=== PATIENT | female | born 1990 | race Caucasian/White ===

== ENCOUNTER 2024-03-31 04:49 | Day surgery (SDC) | payer OTHER, SELFPAY ==
--- NOTE | 2024-03-20 17:32 | PC.NURSE ---
Report to the Outpatient Waiting Room, entrance under the green pavilion located off [facility], at time 0700 on date 03/31/24. Planned Procedure Time: 0900.? Time changes happen often and if your time is changed the preop area will call you the afternoon before. - You and your visitor will be asked to self-screen and do not enter if you have any COVID symptoms. Please call surgeon if you need to reschedule. - A mask is optional within the hospital at this time. Patients may have clear liquids (water, carbonated beverages, clear teas, apple juice) until 3 hours prior to surgery with a maximum of 20 ounces. 0600 - No food from midnight until time of surgery and no smoking - Infants may have breast milk until 4 hours before surgery, infant formula 6 hours prior to surgery. - Children will be allowed to drink immediately following surgery.? If applicable, please bring a bottle or sippy cup to assist with drinking. Juice, water, soda, and popsicles are readily available.? For infants on formula, please bring formula the day of surgery.? Pacifiers are allowed. Take only the following medications with a SIP of water on the morning of surgery: hydroxyzine DO NOT STOP ANY OF YOUR OTHER PRESCRIPTION MEDICATIONS PRIOR TO SURGERY EXCEPT THE FOLLOWING Medications to discontinue per physician: please stop melatonin 3 days prior to your surgery Date to take last dose 03/28/24 Please no make-up, nail somali, hairspray, perfume, deodorant, or body powder the day of surgery.? No jewelry (including any body piercings) or valuables the day of surgery, leave them at home.? Please take a shower or bath the night before, or the morning of, surgery with an antibacterial soap.? Wear comfortable, loose fitting clothing.? Children are encouraged to wear pajamas. - Jewelry must be removed prior to entering the operating room.? Rings and piercings that are not removed may be cut off. - The hospital will not accept responsibility for valuables.? - Please leave all valuables, including medications, at home the day of surgery. If you are going home after surgery, a licensed hire car driver must drive you home.? - NO public transportation without another adult if you receive anesthesia. - We recommend that an adult stay with you for 24 hours following discharge. - We also recommend that you do not drive, make important decision, drink alcoholic beverages, or take any drugs that were not prescribed by your health care provider for at least 24 hours after your discharge time. For Pediatric surgeries, we recommend two adults accompany the child home. Follow any additional instructions given to you from your surgeon. Telephone instructions given to Patient- Marla Lisa and asked if any additional questions and then verbalized understanding. Patient advised to call surgeon office or pre surgery nurse liaison [phone] if any additional questions.
[2024-03-20 17:39] VITALS: BMI 35.1
--- NOTE | 2024-03-30 11:33 | P.PNAN_ITS ---
Anes - Initial Pre Proc Eval Procedure: Operation Date: 03/31/24 09:00 Proposed Procedures p Bilateral Breast Augmentation - Emir Pop MD Date/Time: 03/30/24 11:33 Surgeon: Emir Pop MD Pre Op Diagnosis: micromastia Patient Data Age: 33 Gender: F Height: 1.68 m Weight: 98.6 kg Allergies Allergy/AdvReac Type Severity Reaction Status Date / Time No Known Allergies Allergy Verified 03/31/24 08:16 Home Medications Medication Instructions Recorded Confirmed Type fluoxetine 40 mg capsule 40 mg PO HS 03/20/24 03/20/24 History hydroxyzine HCl 25 mg tablet 25 mg PO DAILY PRN Anxiety 03/20/24 03/20/24 History melatonin 3 mg tablet 3 mg PO HS PRN Insomnia 03/20/24 03/20/24 History norethindrone (contraceptive) 0.35 0.35 mg PO HS 03/20/24 03/20/24 History mg tablet Patient hx anesthesia problems: none Family hx anesthesia problems: none Results Review: All pre-operative results and documents have been reviewed as part of the pre- operative evaluation. [facility] Past Medical History Medical History (Updated 03/30/24 @ 11:33 by Juan Alexander DO) Anxiety Depression Social History Social History Smoking packs per day: 1 Smoking cigarettes per day: 20.0 Years smoked: 5 Smoking pack-years: 5.00 Smoking status: Former smoker Tobacco type: e-cigarettes/vaping Alcohol use details: socially, glass of wine on the weekends Spiritual care concerns: No Anes - Eval Final PreProcedure Day of Procedure 03/30/24 11:33 Patient weight: obese Heart: regular rate and rhythm Lungs: clear to auscultation Airway: Mallampati scale class III Neurological: alert and oriented Last oral intake: >/= 8 hours ASA classification: II Emergent: no Anesthetic plan: proceed Anesthesia type and monitoring: general LMA and standard monitoring Results Review: All pre-operative results and documents have been reviewed as part of the pre- operative evaluation. Informed Consent: The patient's anesthetic plan and its attendant risks and benefits were discussed with the patient/family/POA. Questions were solicited and answers provided to the satisfaction of the patient/family/POA.
[2024-03-31] VITALS (9 sets, daily range): BP systolic 133–146; BP diastolic 78–99; PULSE 73–108; RESP 12–17; TEMP 36.3–37.4; O2SAT 94–100; BMI 34.9
[2024-03-31 08:02] LABS: BEDSIDEPREGUCG Negative (Negative)
[2024-03-31] MEDS: LACTATED RINGERS 1,000 ML 30 ML IV CONT ×2 (08:09→10:29)
--- NOTE | 2024-03-31 08:35 | WPDHPUPDATE1 ---
History and Physical Update Update Date/Time: 03/31/24 08:35 History and Physical has been reviewed, including an updated exam of the patient. There are NO changes in the patient's condition. Risks, benefits, and alternatives have been discussed and questions answered. Patient agrees to proceed with procedure.
[2024-03-31] MEDS: SCOPOLAMINE 1 MG PATCH 1 PATCH TRANSDERM (08:48)
--- NOTE | 2024-03-31 08:48 | W.PM.PROC2 ---
Procedure Note - Detailed Date of Procedure 03/31/24 Pre-op Diagnosis micromastia Post-op Diagnosis Same Procedure Performed Bilateral subfascial augmentation mammaplasty Surgeon Emir Pop MD Anesthesia General Findings Bilateral Brenda Tay SoftTouch 600 cc Right - REF# [id number] SN [id number] Left - REF# [id number] SN [id number] Description of Procedure She is here today for bilateral breast augmentation. Previously and again today the risks, benefits, alternatives were discussed in extensive detail. I wanted her to be very realistic about the risks involved as well as expectations. We discussed aftercare and what to monitor for. Made sure answered all of her questions to her satisfaction today and consent was obtained. Marked in the preoperative holding area with their verification. The patient was taken to the operating room placed supine on the operating table. Anesthesia was provided by anesthesiology. A surgical time-out was taken. We cleansed the skin and 1% lidocaine and 0.25% Marcaine with epinephrine was used anesthetize as a field block. She was prepped and draped in a standard sterile fashion. Tegaderm nipple Beck were placed. A 15 blade used to make an incision along the inframammary fold. Dissection was continued at 45 degree angle until the chest wall as identified. I elevated a subfascial pocket in the appropriate dimensions based on our preoperative planning for the implant. I then copiously irrigated with saline solution and verified a strict hemostasis. Next the use a triple antibiotic and Betadine containing solution to irrigate the pocket. I washed my gloves with the triple antibiotic and Betadine solution. We washed the implant immediately upon opening it with this solution and only opened it when we needed it. I used implant funnel and no-touch technique. The implant was introduced into the pocket using the funnel. Having verified positioning of the implant this was closed using 2-0 PDS followed by 3-0 Monocryl in a running subcuticular 4-0 Monocryl followed by tissue glue. Fluffs and surgical bra were placed. Patient was awoke and taken to PACU without difficulty. All instrument sponge counts were correct at the end of the case. Estimated Blood Loss 20 Drains No Packing No Pathology None sent Complications No immediate complications Condition Stable Disposition PACU
[2024-03-31] MEDS: BUPivacaine HCL 0.25% PF 30 ML VIAL INFILTRATE (09:04)
[2024-03-31] MEDS: NACL 0.9% IRRIG POUR BOTTLE 900 ML, GENTAMICIN SULFATE INJ 160 MG, ceFAZolin 2 GM, POVI... IRRIGATION (09:04)
[2024-03-31] MEDS: TRANEXAMIC ACID 1,000MG/ISO100 1,000 MG/100 ML BAG 200 MG IVPB (09:04)
[2024-03-31] MEDS: ceFAZolin 2 GM/D5W 50 ML 2 GM/50 ML BAG IVPB (09:04)
[2024-03-31] MEDS: LIDO 1%/EPINEPHRINE 1:100,000 50 ML VIAL 30 ML INFILTRATE (09:04)
[2024-03-31] MEDS: fentaNYL CITRATE INJ (*CRX) 100 MCG/2 ML VIAL 25 MCG IV PUSH ×8 (10:16→10:53)
[2024-03-31] MEDS: ONDANSETRON INJ 4 MG/2 ML VIAL IV PUSH (10:46)
== END 2024-03-31 11:57 | disposition home or self-care (01) ==
PROVIDERS: Visit Provider Surgery Plastic and Reconstructive Surgery
PROC: (CPT 19325; principal; 2024-03-31 09:00)
DX: Z41.1 Encounter for cosmetic surgery (principal); N64.82 Hypoplasia of breast; F41.9 Anxiety disorder, unspecified; F32.A Depression, unspecified; Z87.891 Personal history of nicotine dependence; E66.9 Obesity, unspecified; Z68.34 Body mass index [BMI] 34.0-34.9, adult
CPT/HCPCS: 19325; A9270; J0690; J1100; J1171; J1580; J2003; J2004; J2250; J2405; J2704; J3010; J7120